=== PATIENT | female | born 1985 | race Caucasian/White ===

== ENCOUNTER 2021-05-22 11:04 | Outpatient (CLI) | payer OTHER ==
[2021-05-22 12:41] LABS: #Basophils 0.1 10x3/uL (0.0-0.2); #Eosinphils 0.4 10x3/uL (0.0-0.5); #Monocytes 0.5 10x3/uL (0.0-1.1); #Neutrophils 3.1 10x3/uL (1.5-8.4); %Basophils 1.3 % (0.0-2.0); %Eosinophils 5.9 % (0.0-6.0); %Lymphocytes 33.8 % (18.0-47.0); %Monocytes 7.6 % (0.0-10.0); %Neutrophils 51.2 % (40.0-75.0); Mean Corpuscular HGB CONC 32.1 g/dL (32.0-36.0); Mean Corpuscular Volume 84.2 fl (81.6-98.3); Mean Platelet Volume 10.8 fl (7.4-10.4); Platelet Count 243 10x3/uL (150-450); Red Blood Cell (RBC) Count 4.44 10x6/uL (3.90-5.03); White Blood Cell (WBC) Count 6.1 10x3/uL (3.5-10.5)
[2021-05-22 12:55] LABS: Anion Gap 12 mmol/L (10-20); BUN (Urea Nitrogen) 15 mg/dL (7.0-18.7); Calc. Creatinine Clearance 0 mL/min (70-130); Calcium 9.1 mg/dL (7.8-10.44); Carbon Dioxide 24 mmol/L (22-29); Chloride 106 mmol/L (98-107); Glucose 72 mg/dL (70-105); Potassium 4.4 mmol/L (3.5-5.1); Sodium 138 mmol/L (136-145)
[2021-05-22 13:09] LABS: BHCG - Serum Negative (NEGATIVE); Pregs Control Background? CLEAR/WHITE (CLR/WHITE); Pregs Control Bar Appear? YES (CONTROL BAR)
[2021-05-22 22:50] LABS: SARS-CoV-2 PCR by NAA Not Detected (NotDetected)
== END 2021-05-22 11:05 | disposition home or self-care (01) ==
LOC: LABBT 11:04
PROVIDERS: ATTEND Specialist
DX: Z01.812 Encounter for preprocedural laboratory examination (principal); K43.9 Ventral hernia without obstruction or gangrene; Z20.822 Contact with and (suspected) exposure to COVID-19
CPT/HCPCS: 80048; 84703; 85025; U0003; U0005

== ENCOUNTER 2021-05-25 09:10 | Day surgery (SDC) | payer OTHER ==
[2021-05-24 10:47] VITALS: BMI 33.8
[2021-05-25] MEDS ORDERED: Ketorolac Tromethamine 30 MG/ML VIAL ONE (10:18)
[2021-05-25] MEDS ORDERED: ceFAZolin 2 GM/DEX 5% 100 ML BAG ONE (10:18)
[2021-05-25] MEDS ORDERED: Acetaminophen 500 MG TAB ONE (10:18)
[2021-05-25] MEDS ORDERED: Scopolamine 1.5 mg/72 hour Patch ONE (10:18)
[2021-05-25] MEDS ORDERED: Midazolam HCl 2 mg/2 ml Vial ONE ×2 (11:31→11:43)
[2021-05-25] MEDS ORDERED: Lidocaine 1% w/Epinephrine 1:100K 20 ML VIAL ONE (11:39)
[2021-05-25] MEDS ORDERED: Bupivacaine 0.25% HCL 30 ML VIAL ONE (11:39)
[2021-05-25] MEDS ORDERED: Fentanyl 100 MCG/2 ML VIAL ONE ×2 (11:43→14:10)
[2021-05-25] MEDS ORDERED: Lidocaine 2% Jelly 5 ML TUBE ONE (11:43)
[2021-05-25] MEDS ORDERED: HYDROmorphone 0.5 MG/0.5 ML SYRINGE ONE (11:43)
[2021-05-25] MEDS ORDERED: PROPOFOL 200 MG/20 ML VIAL ONE (11:57)
[2021-05-25] MEDS ORDERED: Ondansetron PF 4 MG/2 ML Vial ONE ×2 (11:57→13:39)
[2021-05-25] MEDS ORDERED: Lidocaine 1% PF 5 ML VIAL ONE (11:57)
[2021-05-25] MEDS ORDERED: Dexamethasone 20 MG/5 ML VIAL ONE (11:57)
[2021-05-25] MEDS ORDERED: Rocuronium Bromide 10 MG/ML (10ML VIAL) ONE (11:57)
[2021-05-25] MEDS ORDERED: Glycopyrrolate 0.2 MG/ML 5 ML SYRINGE ONE (11:57)
[2021-05-25] MEDS ORDERED: Promethazine HCl 25 MG/ML VIAL ONE (14:21)
[2021-05-25] MEDS ORDERED: HYDROcodone/Acetaminophen 5/325 mg Tablet ONE (15:42)
[2021-05-25] MEDS ORDERED: Morphine 4 MG/ML VIAL ONE (16:02)
== END 2021-05-25 17:35 | disposition home or self-care (01) ==
LOC: SDC 09:10
PROVIDERS: ATTEND Specialist
PROC: 0WUF4JZ Supplement Abdominal Wall with Synthetic Substitute, Percutaneous Endoscopic Approach (ICD-10-PCS; principal; 2021-05-25)
DX: K43.2 Incisional hernia without obstruction or gangrene (principal); Z79.899 Other long term (current) drug therapy
CPT/HCPCS: C1781; J1100; J1170; J1885; J2250; J2270; J2405; J2550; J2704; J3010; S0020